=== PATIENT | female | born 1975 | race Caucasian/White ===

== ENCOUNTER 2016-09-29 14:54 | Outpatient (CLI) | payer BC, OTHER ==
--- NOTE | 2016-09-29 16:39 | RAD ---
LEFT THIRD FINGER: Date: 09-29-16 FINDINGS: Three views show no fracture or other bony abnormality. There are no soft tissue calcifications. T he PIP joint appears normal. IMPRESSION: No acute findings. POS: HOME
== END 2016-09-29 14:55 | disposition home or self-care (01) ==
LOC: BURRAD 14:54
PROVIDERS: ATTEND Family Medicine
DX: M79.645 Pain in left finger(s) (principal)

== ENCOUNTER 2016-10-06 03:49 | Emergency (ER) | payer BC, OTHER ==
[2016-10-06] MEDS ORDERED: Metoprolol Tartrate 5 MG/5 ML VIAL ONE (04:27)
[2016-10-06 04:28] LABS: #Basophils 0.1 thou/uL (0.0-0.2); #Eosinphils 0.3 thou/uL (0.0-0.7); #Lymphocytes 2.6 thou/uL (1.20-3.40); #Monocytes 0.4 thou/uL (0.11-0.59); #Neutrophils 3.6 thou/uL (1.40-6.50); %Basophils 1.2 % (0.0-1.0); %Eosinophils 4.9 % (0.0-10.0); %Monocytes 6.3 % (0.0-10.0); Hematocrit 41.4 % (36.0-47.0); Red Blood Cell (RBC) Count 4.46 mill/uL (4.20-5.40); White Blood Cell (WBC) Count 7.1 thou/uL (4.8-10.8)
[2016-10-06 04:33] LABS: Bilirubin Negative (Negative); Blood, Urine Trace (Negative); Glucose, Urine (Dipstick) Negative (Negative); Ketone, Urine Negative (Negative); Nitrite Negative (Negative); Protein, Urine (Dipstick) Negative (Neg-Trace); Urobilinogen 0.2 mg/dL (0.2-1.0)
[2016-10-06 04:36] LABS: ALT (SGPT) 15 U/L (0-55); AST (SGOT) 17 U/L (5-34); Alkaline Phosphatase 63 U/L (40-150); Anion Gap 15 mmol/L (10-20); BUN (Urea Nitrogen) 7 mg/dL (7.0-18.7); Bilirubin, Total 0.2 mg/dL (0.2-1.2); CK (CPK) 129 U/L (29-168); Calc. Creatinine Clearance 0 mL/min (70-130); Calcium 9.4 mg/dL (7.8-10.44); Carbon Dioxide 25 mmol/L (22-29); Chloride 107 mmol/L (98-107); Estimated GFR-MDRD 77; Globulin 2.8 g/dL (2.4-3.5); Magnesium 2.5 mg/dL (1.6-2.6); Protein, Total 7.3 g/dL (6.0-8.3)
[2016-10-06 04:38] LABS: Bacteria/HPF None Seen HPF (None Seen); RBC/HPF 0-3 HPF (0-3); Squamous Epithelial 0-3 HPF (0-3); WBC/HPF None Seen HPF (0-3)
[2016-10-06 04:41] LABS: Methadone Not Detected (NotDetected); Methamphetamine Not Detected (NotDetected)
[2016-10-06 08:01] LABS: Troponin I Less than 0.010 ng/mL (< 0.028)
--- NOTE | 2016-10-06 08:36 | ERRECORD ---
[facility] EMERGENCY RECORD HPI PALPITATIONS (04:17 MBRI) CHIEF COMPLAINT: Patient presents for evaluation of heart racing, Patient presents for evaluation of palpitations, Patient presents for evaluation of rapid heart rate. HISTORIAN: History provided by patient. LOCATION: Symptoms are generalized. QUALITY: Pain is dull in nature, Unable to describe the quality of the pain. SEVERITY: Maximum severity of symptoms moderate, Currently symptoms are mild. TIME COURSE: Sudden onset of symptoms, just prior to arrival, Symptoms are improving, are intermittent. CHADS2 SCORE: Patient has Systolic pressure greater than 160mmhg (1), Total 1. ASSOCIATED WITH: No associated anxiety, Associated with caffeine use, intermittent, No associated chest pain, Associated with chills, No associated decongestant use, Associated with diaphoresis, No associated diet pill use, No associated dizziness, No associated drug abuse, Not associated with exertion, Associated with headache, No associated nausea, No associated shortness of breath, No associated stress, No associated syncope, No associated vertigo, No associated vomiting, She had an intermittent pain in the left leg that travelled from her post knee proximally for a brief time period with the initial symptom onset. EXACERBATED BY: Patient's condition exacerbated by nothing. RELIEVED BY: Patient's condition relieved spontaneously. ROS (04:19 MBRI) CONSTITUTIONAL: Historian reports chills, denies fatigue, denies fever, denies weakness. EYES: Negative eye review of systems. ENT: Historian denies dysphagia, denies dysphasia, denies dysphonia, denies otalgia, denies rhinorrhea, denies sinus pain, denies sore throat, denies voice changes. Feeling of fullness in the throat with the onset of the symptoms. CARDIOVASCULAR: Historian denies chest pain, no radiation, Historian reports diaphoresis, denies dyspnea on exertion, denies edema, denies orthopnea, denies paroxysmal nocturnal dyspnea, denies syncope, reports palpitations. RESPIRATORY: Historian denies cough, denies shortness of breath, denies sputum, denies stridor, denies wheezing. GI: Negative gastrointestinal review of systems, Historian denies abdominal pain, denies nausea, denies vomiting. GENITOURINARY FEMALE: Negative genitourinary review of systems. MUSCULOSKELETAL: Negative musculoskeletal review of systems. SKIN: Negative skin review of systems. NEUROLOGIC: Historian denies dizziness, denies dysphasia, denies focal weakness, reports headache, denies mental status changes, denies paresthesias, denies sensory changes, denies speech changes, denies vertigo. &a-1R&a+25V*p+0X*f2001O*c202B*c15G*c2P*p-0X&a-25V&a+1R Name: Karli Sampson : 1975 F40 MedRec: [id number] AcctNum: [id number] Prepared: Sayda Oct 06, 2016 08:34 by Interface Page 1 of 5 pMD [facility] EMERGENCY RECORD ENDOCRINE: Negative endocrine review of systems. HEMO/LYMPHATIC: Normal hematologic/lymphatic system review. PSYCHIATRIC: Historian denies anxiety, denies depression, denies drug abuse, denies suicidal ideation. PAST MEDICAL HISTORY (04:13 BMAD) MEDICAL HISTORY: Flu vaccine not up to date, Tetanus not up to date, Pneumococcal vaccine not up to date, Raynauds disease. FEMALE SURGICAL HISTORY: bilateral knee repair, Surgical history of hysterectomy. PSYCHIATRIC HISTORY: No previous psychiatric history. SOCIAL HISTORY: Patient drinks socially, twice a month, Patient denies drug use, Patient currently uses tobacco, smokes cigarettes, daily, Patient has smoked for 5 years, Patient smokes 1/2 packs per day. KNOWN ALLERGIES acetaminophen (Unconfirmed): Reaction: "trouble breathing; hives" all opiates, (Unconfirmed): Reaction: Hives, Source: Patient codeine sulfate: Severity: Severe, - "trouble breathing" hydrocodone (Unconfirmed): Reaction: "trouble breathing, hives" hydrocodone bitartrate (Unconfirmed): Reaction: "trouble breathing; hives" meperidine HCl (Unconfirmed): Reaction: "trouble breathing, hives" morphine: Severity: Severe, Source: Patient, - "I coded." promethazine: Reaction: Hives, Severity: Moderate VICOdin: Severity: Severe, Source: Patient, - "trouble breathing." CURRENT MEDICATIONS (04:23 BMAD) aspirin: TABLET : Strength - 81 mg : ORAL Patient Dose: 1 tab(s) Oral once a day (in the morning). VITAL SIGNS VITAL SIGNS: BP: 173/98, Pulse: 68, Resp: 18, Temp: 97.8 (Oral), O2 sat: 97 on Room Air, Time: 10/06/2016 04:02. (04:02 BMAD) BP: 156/89, Pulse: 78, Resp: 22, Pain: 0, O2 sat: 98 on Room Air, Time: 10/06/2016 04:20. (04:20 BMAD) BP: 144/85, Pulse: 60, Resp: 18, Pain: 0, O2 sat: 98, Time: 10/06/2016 04:40. (04:40 BMAD) BP: 121/80, Pulse: 67, Resp: 14, O2 sat: 99 on Room Air, Time: 10/06/2016 05:04. (05:04 BMAD) Pulse: 56, Time: 10/06/2016 05:16. (05:16 BMAD) BP: 119/79, Pulse: 48, Resp: 14, Pain: 0, O2 sat: 98 on Room Air, Time: 10/06/2016 05:30. (05:30 BMAD) BP: 108/70, Pulse: 52, Resp: 15, Pain: 0, O2 sat: 96 on Room Air, Time: 10/06/2016 06:18. (06:18 BMAD) &a-1R&a+25V*p+0X*z5164N*c202B*c15G*c2P*p-0X&a-25V&a+1R Name: Karli Sampson : 1975 F40 MedRec: [id number] AcctNum: [id number] Prepared: Sayda Oct 06, 2016 08:34 by Interface Page 2 of 5 pMD [facility] EMERGENCY RECORD BP: 107/72, Pulse: 54, Resp: 16, O2 sat: 95 on Room Air, Time: 10/06/2016 06:30. (06:30 BMAD) Pulse: 57, Time: 10/06/2016 07:00. (07:00 BMAD) BP: 98/76, Pulse: 62, Resp: 14, Pain: 0, O2 sat: 95 on Room Air, Time: 10/06/2016 08:15. (08:15 [facility]) PHYSICAL EXAM (04:21 MBRI) CONSTITUTIONAL: Vital signs reviewed, Patient afebrile, Pulse normal, Blood pressure, hypertensive, Respiratory rate normal, Patient appears non toxic, Patient appears pain free, Patient alert and oriented to person, place and time. HEAD: Head exam included findings of head atraumatic, normocephalic. EYES: Eye exam included findings of eyelids normal to inspection, Pupils equally round and reactive to light, Extraocular muscles intact. ENT: ENT exam normal, Ear exam normal, Nose exam normal, Pharynx exam normal, Uvula exam normal, Mouth exam normal. NECK: Neck exam included findings of normal range of motion, Trachea midline, no cervical adenopathy, no tenderness, no abrasions, no contusions, no ecchymosis. RESPIRATORY CHEST: Respiratory exam included findings of no respiratory distress, Breath sounds clear, No wheezing, No rales, No rhonchi, Breath sounds not diminished, Chest exam included findings of chest movement symmetrical, no tenderness. CARDIOVASCULAR: Cardiovascular exam included findings of heart rate regular rate and rhythm, Heart sounds normal, normal S1, normal S2, no murmurs, Carotids normal, Abdominal aorta normal, Pedal pulses normal. ABDOMEN FEMALE: Abdominal exam included findings of abdomen nontender, Bowel sounds normal, no distension, no mass, no pulsatile masses, no peritoneal signs. BACK: Back exam included findings of normal inspection, no tenderness. UPPER EXTREMITY: Upper extremity exam included findings of inspection normal, Range of motion normal, Motor strength normal, Sensation intact, Radial pulse normal, no cyanosis, no clubbing, no edema. LOWER EXTREMITY: Lower extremity exam included findings of inspection normal, Range of motion normal, Motor strength normal, Sensation intact, Pedal pulse normal, Nish's negative, no cyanosis, no clubbing, no edema, no calf tenderness, no palpable cords. NEURO: [place] coma scale 15, Neuro exam findings include patient oriented to person, place and time, Speech normal, Gait normal, Cranial nerves intact, Deep tendon reflexes normal, no focal motor deficits, no focal sensory deficits, no cerebellar deficits, no nystagmus. SKIN: Skin exam included findings of skin warm, dry, and normal in color. &a-1R&a+25V*p+0X*a7638T*c202B*c15G*c2P*p-0X&a-25V&a+1R Name: Karli Sampson : 1975 F40 MedRec: [id number] AcctNum: [id number] Prepared: Sayda Oct 06, 2016 08:34 by Interface Page 3 of 5 pMD [facility] EMERGENCY RECORD EKG INTERPRETATION MONITOR STRIP: center specialists strip interpreted by Emergency Department Physician, Monitor strip shows sinus tachycardia, with unifocal premature ventricular complexes, with frequent premature ventricular complexes, in bigeminy, This happened spontaneously during obs of pt. She felt sensation of palpitations and rapid heart rate along with freq ectopy. (04:13 MBRI) 12 LEAD EKG INTERPRETATION: 12 lead EKG interpreted by Emergency Department Physician at time of study, 12 lead EKG shows normal sinus rhythm, Rate (beats per minute): 64, with premature atrial complexes, Conduction normal, ST segments normal, T waves normal, [place] normal, Clinical impression: Normal EKG. (04:10 MBRI) 12 lead EKG interpreted by Emergency Department Physician at time of study, 12 lead EKG shows normal sinus rhythm, Rate (beats per minute): 81, with unifocal premature ventricular complexes, with frequent premature ventricular complexes, in bigeminy, Early bigeminy gives way to decreasing rate in sinus pattern., Interpretation:, Conduction normal, ST segments normal, T waves normal, [place] normal, #2. (04:13 MBRI) RADIOLOGYINTERPRETATION (04:59 MBRI) CHEST: Chest films negative, no infiltrates, no pneumothorax, no cardiomegaly, no congestive heart failure, no effusion. SYSTEMS SOFTWARE ENGINEER: Preliminary review of x-rays by, ED Physician. MEDICATION ADMINISTRATION SUMMARY Drug Name: meTOPROLOL tartrate intravenous, Dose Ordered: 5 mg, Route: IV Push, Status: Given, Time: 04:40 10/06/2016, Detailed record available in Medication Service section. DOCTOR NOTES RE-EVALUATION: Routine re-evaluation, after observation, The patient's condition has improved. (07:59 MBRI) TEXT: Pt has been stable for several hours. No complaints and no further events from a tachycardia standpoint following her treatment. She is currently without symptoms. Initial testing was neg. We are awaiting second set of cardiac enzymes at this time. (07:59 MBRI) Pt evaluated at this time and appears stable. No findings to suggest sig illness or issue requiring hospitalization or further intervention at this time. Plan of care discussed with pt and questions answered. Pt was informed of reasons for follow-up and return and they stated understanding. Pt is stable for d/c home at this time. Will place her on some atenolol and give information about cardiology follow-up and PMD eval. (08:06 MBRI) PROBLEM LIST No recorded problems &a-1R&a+25V*p+0X*l4175O*c202B*c15G*c2P*p-0X&a-25V&a+1R Name: Karli Sampson : 1975 F40 MedRec: [id number] AcctNum: [id number] Prepared: Sayda Oct 06, 2016 08:34 by Interface Page 4 of 5 pMD [facility] EMERGENCY RECORD DIAGNOSIS (08:07 MBRI) FINAL: PRIMARY: PALPITATIONS, ADDITIONAL: PVCs. PRESCRIPTION (08:10 MBRI) atenolol: TABLET : 25 mg : ORAL : Quantity: 1 Unit: tab(s) Route: ORAL Schedule: once a day (in the morning) Dispense: 30 Unit: tab(s) May substitute. Refills: No Refills . NOTES: No refills. atenolol: TABLET : 50 mg : ORAL : Quantity: 1 Unit: tab(s) Route: ORAL Schedule: once a day Dispense: 30 May substitute. Refills: No Refills . NOTES: ^s=No refills No refills. DISPOSITION PATIENT: Disposition Type: Discharge, Disposition: *Discharge Home, Condition: Improved. (08:07 MBRI) Patient left the department. (08:32 JSID) Bailey: WILFRED=JESUS Ratliff, Hollis SPEAR=JESUS Morejon, Lisa MBRI=DO Manjarrez Matthew &a-1R&a+25V*p+0X*x0194C*c202B*c15G*c2P*p-0X&a-25V&a+1R Name: Karli Sampson : 1975 F40 MedRec: [id number] AcctNum: [id number] Prepared: Sayda Oct 06, 2016 08:34 by Interface Page 5 of 5 pMD MTDD
--- NOTE | 2016-10-06 08:42 | PICIS ---
[facility] EMERGENCY RECORD TRIAGE (WedOct 06, 2016 04:04 BMAD) TRIAGE NOTES: pt stating she was laying in bed when her heart began racing with nothing leading to the event. pt has no cardiac history. (WedOct 06, 2016 04:04 BMAD) PATIENT: NAME: Karli Sampson, AGE: 40, GENDER: female, : Wed1975, TIME OF GREET: WedOct 06, 2016 03:49, PREFERRED LANGUAGE: Sinhala, ETHNICITY: Not or , ECODE BILLING MAP: [facility], SSN: [id number], Zip Code: [address], KG WEIGHT: 54.43 (est.), , , PERSON ID: [id number], PAYMENT: SJJose Guadalupe Lara, PCP: DO ALEMAN JOHN SCOTT. (WedOct 06, 2016 04:04 BMAD) PHONE: . (04:06) COMPLAINT: Palpitations. (WedOct 06, 2016 04:04 BMAD) ADMISSION: URGENCY: 2 Emergent, ADMISSION SOURCE: Home, TRANSPORT: Walk-in, BED: ER -01. (WedOct 06, 2016 04:04 BMAD) IMMUNIZATIONS: Flu vaccine not up to date, Tetanus not up to date, Pneumococcal vaccine not up to date. (04:13 BMAD) SIRS SCORING: Heart Rate 55-109 (0), Temp range 96.8-101.1 (0), respiratory rate 12-24 (0), Mental Status altered: no (0), Infection or Suspected Infection: No. (04:13 BMAD) TRIAGE SCREENING: Patient denies suicidal ideation, Patient denies presence of domestic violence. (04:13 BMAD) PROVIDERS: TRIAGE NURSE: Hollis Ratliff RN. (WedOct 06, 2016 04:04 BMAD) VITAL SIGNS: BP 173/98, Pulse 68, Resp 18, Temp 97.8, (Oral), O2 Sat 97, on Room Air, Time 10/06/2016 04:02. (04:02 BMAD) PREVIOUS VISIT ALLERGIES: all opiates,, codeine sulfate, morphine, promethazine, VICOdin. (WedOct 06, 2016 04:04 BMAD) all opiates,, codeine sulfate, morphine, promethazine, VICOdin. (04:13 BMAD) KNOWN ALLERGIES acetaminophen (Unconfirmed): Reaction: "trouble breathing; hives" all opiates, (Unconfirmed): Reaction: Hives, Source: Patient codeine sulfate: Severity: Severe, - "trouble breathing" hydrocodone (Unconfirmed): Reaction: "trouble breathing, hives" hydrocodone bitartrate (Unconfirmed): Reaction: "trouble breathing; hives" meperidine HCl (Unconfirmed): Reaction: "trouble breathing, hives" morphine: Severity: Severe, Source: Patient, - "I coded." promethazine: Reaction: Hives, Severity: Moderate VICOdin: Severity: Severe, Source: Patient, - "trouble breathing." CURRENT MEDICATIONS (04:23 BMAD) aspirin: TABLET : Strength - 81 mg : ORAL Patient Dose: 1 tab(s) Oral once a day (in the morning). &a-1R&a+25V*p+0X*i0322G*c202B*c15G*c2P*p-0X&a-25V&a+1R Name: Karli Sampson : 1975 F40 MedRec: [id number] AcctNum: [id number] Prepared: WedOct 06, 2016 08:39 by Interface Page 1 of 14 pMD [facility] EMERGENCY RECORD VITAL SIGNS VITAL SIGNS: BP: 173/98, Pulse: 68, Resp: 18, Temp: 97.8 (Oral), O2 sat: 97 on Room Air, Time: 10/06/2016 04:02. (04:02 BMAD) BP: 156/89, Pulse: 78, Resp: 22, Pain: 0, O2 sat: 98 on Room Air, Time: 10/06/2016 04:20. (04:20 BMAD) BP: 144/85, Pulse: 60, Resp: 18, Pain: 0, O2 sat: 98, Time: 10/06/2016 04:40. (04:40 BMAD) BP: 121/80, Pulse: 67, Resp: 14, O2 sat: 99 on Room Air, Time: 10/06/2016 05:04. (05:04 BMAD) Pulse: 56, Time: 10/06/2016 05:16. (05:16 BMAD) BP: 119/79, Pulse: 48, Resp: 14, Pain: 0, O2 sat: 98 on Room Air, Time: 10/06/2016 05:30. (05:30 BMAD) BP: 108/70, Pulse: 52, Resp: 15, Pain: 0, O2 sat: 96 on Room Air, Time: 10/06/2016 06:18. (06:18 BMAD) BP: 107/72, Pulse: 54, Resp: 16, O2 sat: 95 on Room Air, Time: 10/06/2016 06:30. (06:30 BMAD) Pulse: 57, Time: 10/06/2016 07:00. (07:00 BMAD) BP: 98/76, Pulse: 62, Resp: 14, Pain: 0, O2 sat: 95 on Room Air, Time: 10/06/2016 08:15. (08:15 [facility]) NURSING ASSESSMENT: CARDIOVASCULAR (04:30 BMAD) CONSTITUTIONAL: Complex assessment performed, Patient arrives ambulatory, Gait steady, History obtained from patient, Patient appears, anxious, Patient cooperative, Patient alert, Oriented to person, place and time, Skin warm, Skin dry, Skin normal in color, Mucous membranes pink, Mucous membranes moist, Patient is well-groomed, Patient complains of Palpitations, pt stating she was laying in bed when her heart began racing with nothing leading to the event. pt stating she also has a headache associated with the heart racing feeling. pt also complaining of the feeling of incontinence. pt is worried "that she has a blood clot.". PAIN: Patient rates pain as 0 out of 10. CARDIOVASCULAR: Cardiovascular assessment findings include heart rate normal, Heart rhythm normal sinus, Heart sounds normal, S1, S2, Bilateral blood pressures equal, Left radial pulse +3(easily palpated, considered normal), Right radial pulse +3(easily palpated, considered normal), No history of pulmonary embolism, No history of DVT or leg swelling. RESPIRATORY/CHEST: Breath sounds clear, Respiratory assessment findings include respiratory effort easy, Respirations regular, Conversing normally, Neck and chest exam findings include trachea midline, Chest expansion equal, Chest movement symmetrical. SAFETY: Side rails up, Cart/Stretcher in lowest position, Family at bedside, Call light within reach, Hospital ID band on. NURSING ASSESSMENT: FALL RISK (05:17 BMAD) FALL RISK: Fall risk assessment findings include: no history of falls (0), No bed rest greater than 2 days (0), No use of level of consciousness altering agents with mentation or cognitive changes &a-1R&a+25V*p+0X*t6024P*c202B*c15G*c2P*p-0X&a-25V&a+1R Name: Karli Sampson : 1975 F40 MedRec: [id number] AcctNum: [id number] Prepared: Sayda Oct 06, 2016 08:39 by Interface Page 2 of 14 D [facility] EMERGENCY RECORD (0), No change in blood pressure (0), No sensory deficits (0), No impaired mobility (0), No neurologic diagnosis (0), No elimination problems (0), No confusion (0), Total score 0, No risk for fall. NURSING ASSESSMENT: SKIN (05:20 BMAD) SKIN: Skin assessment findings include skin warm, Skin dry, Skin normal in color, Inspection findings include: No pressure ulcer to the shoulder, Inspection findings include no pressure ulcer to the elbow, Inspection findings include no pressure ulcers to the hip, Inspection findings include no pressure ulcer to the sacrum, Inspection findings include no pressure ulcer to the heel, Inspection findings include no pressure ulcer, Inspection findings include no pressure ulcer. NURSING PROCEDURE: BEDSIDE SIRS TESTING (05:16 BMAD) SCORES: Heart Rate 55-109 (0), Temp range 96.8-101.1 (0), respiratory rate 12-24 (0), Latest WBC 3-14.9 (0), Mental Status altered: no (0), Infection or Suspected Infection: No. NURSING PROCEDURE: HYDROELECTRIC MECHANIC (04:14 BMAD) HYDROELECTRIC MECHANIC: Patient placed on surveillance system monitor, Patient placed on non-invasive blood pressure monitor, with disposable blood pressure cuff applied, Patient placed on continuous pulse oximetry, Adult/pediatric oxisensor applied, Oxygen saturation 100%. NURSING PROCEDURE: DISCHARGE NOTE (08:16 [facility]) DISCHARGE: Patient discharged to home, ambulating without assistance, driving self, accompanied by other family member, Summary of Care printed/ provided, Patient requested and was provided an electronic copy of Discharge Instructions, Transition record given to patient, Discharge instructions given to patient, Simple or moderate discharge teaching performed, Prescriptions given and instructions on side effects given, Medication reconciliation form given, Above person(s) verbalized understanding of discharge instructions and follow-up care, Patient treated and evaluated by physician. NURSING PROCEDURE: EKG CHART PATIENT IDENTIFIER: Patient actively involved in identification process, Patient's identity verified by patient stating name, Patient's identity verified by patient stating date, Patient's identity verified by hospital ID bracelet. (04:04 BMAD) Patient actively involved in identification process, Patient's identity verified by patient stating name, Patient's identity verified by patient stating date, Patient's identity verified by hospital ID bracelet. (04:09 BMAD) EKG: EKG indicated for complaint of palpitations, 12 lead EKG performed on the left chest, done by Hollis LEE, first EKG, Notes: Initial EKG completed at 0353 with problems storing on SD card on EKG machine therefore EKG was repeated to get better quality. &a-1R&a+25V*p+0X*v2467B*c202B*c15G*c2P*p-0X&a-25V&a+1R Name: Karli Sampson : 1975 F40 MedRec: [id number] AcctNum: [id number] Prepared: Sayda Oct 06, 2016 08:39 by Interface Page 3 of 14 pMD [facility] EMERGENCY RECORD (04:04 BMAD) EKG indicated for complaint of palpitations, 12 lead EKG performed on the left chest, done by Hollis LEE, second EKG, Notes: Pt EKG repeated per Dr. Manjarrez verbal order. Pt stating at this time, "I do not know what is wrong I feel like I am going too pee myself!. It's happening again!" Ptt behavior very anxious at this time. Dr. Manjarrez verbalizing to keep pt hooked up to EKG machine and repeart upon pt experiencing tachycardia. (04:09 BMAD) FOLLOW-UP: After procedure, EKG for interpretation given to Dr. Manjarrez. (04:04 BMAD) After procedure, EKG for interpretation given to Dr. Manjarrez. (04:09 BMAD) NURSING PROCEDURE: IV PATIENT IDENITIFIER: Patient actively involved in identification process, Patient's identity verified by patient stating name, Patient's identity verified by patient stating date, Patient's identity verified by hospital ID bracelet, Patient's identity verified by family member. (04:14 BMAD) IV SITE 1: IV therapy indicated for hydration, IV therapy indicated for medication administration, IV established, to the right antecubital, using a 20 gauge catheter, in one attempt, IV site prepped with CHLORAPREP, Saline lock established, Flushed with normal saline (mls): 10, Labs drawn at time of placement, labeled in the presence of the patient and sent to lab, Notes: LINE ESTABLISHED BY PENELOPE LEE. (04:14 BMAD) FOLLOW-UP SITE 1: IV discontinued, due to patient being discharged, catheter intact, Notes: Bleeding easily controlled. Site covered with 2X2 gauze and secured with transpore tape. (08:15 JSMI) NURSING PROCEDURE: NURSE NOTES NURSES NOTES: Patient is improving, Patient in no apparent distress, Patient states decreased pain, Assistance offered to patient, Pillow given to patient, Warm blanket given to patient, Food or beverage offered to family members. (05:15 BMAD) Notes: DR. MANJARREZ AWARE OF PT HEART RATE IN 40S POST METOPROLOL ADMINISTRATION. (05:42 BMAD) Notes: report from JESUS Shafer. Pt in NAD, RR even and unlabored. (07:08 LGIB) ORDER DETAILS Order Name: HYDROELECTRIC MECHANIC ED, Status: Done, Time: 04:13 10/06/2016, User: BMAD, - Ordered for: DO Manjarrez Matthew, - Entered by: DO Manjarrez Matthew - Tue Oct 06, 2016 04:10, - Quantity: 1, Order Name: Cardiac Profile w/CKMB & Troponin - I, Status: Active, Time: 07:16 10/06/2016, User: LGIB, - Ordered for: DO Manjarrez Matthew, &a-1R&a+25V*p+0X*f5065N*c202B*c15G*c2P*p-0X&a-25V&a+1R Name: Karli Sampson : 1975 F40 MedRec: [id number] AcctNum: [id number] Prepared: WedOct 06, 2016 08:39 by Interface Page 4 of 14 pMD [facility] EMERGENCY RECORD - Entered by: JESUS Yeung Lauren - Tue Oct 06, 2016 07:16, - Quantity: 1, Order Name: Cardiac Profile w/CKMB & Troponin - I, Status: Active, Time: 04:10 10/06/2016, User: MBRI, - Ordered for: DO Manjarrez Matthew, - Entered by: DO Manjarrez Matthew - Tue Oct 06, 2016 04:10, - Quantity: 1, Order Name: CBC with Differential, Status: Active, Time: 04:10 10/06/2016, User: MBRI, - Ordered for: DO Manjarrez Matthew, - Entered by: DO Manjarrez Matthew - Tue Oct 06, 2016 04:10, - Quantity: 1, Order Name: CK (CPK), Status: Active, Time: 04:10 10/06/2016, User: MBRI, - Ordered for: DO Manjarrez Matthew, - Entered by: DO Manjarrez Matthew - Tue Oct 06, 2016 04:10, - Quantity: 1, Order Name: Comprehensive Metabolic Panel, Status: Active, Time: 04:10 10/06/2016, User: MBRI, - Ordered for: DO Manjarrez Matthew, - Entered by: DO Manjarrez Matthew - Tue Oct 06, 2016 04:10, - Quantity: 1, Order Name: D-Dimer (Quantitative), Status: Active, Time: 04:10 10/06/2016, User: MBRI, - Ordered for: DO Manjarrez Matthew, - Entered by: DO Manjarrez Matthew - Tue Oct 06, 2016 04:10, - Quantity: 1, Order Name: Drug Screen, Urine, Status: Active, Time: 04:10 10/06/2016, User: MBRI, - Ordered for: DO Manjarrez Matthew, - Entered by: DO Manjarrez Matthew - Tue Oct 06, 2016 04:10, - Quantity: 1, Order Name: EKG 12 Lead in Emergency Room, Status: Active, Time: 04:10 10/06/2016, User: CRISPIN, - Ordered for: DO Manjarrez Matthew, - Entered by: DO Manjarrez Matthew - Sayda Oct 06, 2016 04:10, - Quantity: 1, Order Name: EKG 12 Lead in Emergency Room, Status: Active, Time: 04:19 10/06/2016, User: WILFRED, - Ordered for: DO Manjarrez Matthew, - Entered by: EJSUS Ratliff Blake - Tue Oct 06, 2016 04:19, - Quantity: 1, Order Name: ERRT Pulse Oximeter ER, Status: Active, Time: 04:10 10/06/2016, User: CRISPIN, - Ordered for: DO Manjarrez Matthew, - Entered by: DO Manjarrez Matthew - Tue Oct 06, 2016 04:10, - Quantity: 1, Order Name: Magnesium, Status: Active, Time: 04:10 10/06/2016, User: CRISPIN, - Ordered for: DO Manjarrez Matthew, &a-1R&a+25V*p+0X*e9350Y*c202B*c15G*c2P*p-0X&a-25V&a+1R Name: Karli Sampson : 1975 F40 MedRec: [id number] AcctNum: [id number] Prepared: WedOct 06, 2016 08:39 by Interface Page 5 of 14 D [facility] EMERGENCY RECORD - Entered by: DO Manjarrez Matthew - Tue Oct 06, 2016 04:10, - Quantity: 1, Order Name: SALINE LOCK, Status: Done, Time: 04:13 10/06/2016, User: WILFRED, - Ordered for: DO Manjarrez Matthew, - Entered by: DO Manjarrez Matthew - Tue Oct 06, 2016 04:10, - Quantity: 1, Order Name: Thyroid Stimulating Hormone, Status: Active, Time: 04:10 10/06/2016, User: CRISPIN, - Ordered for: DO Manjarrez Matthew, - Entered by: DO Manjarrez Matthew - Tue Oct 06, 2016 04:10, - Quantity: 1, Order Name: Urinalysis w/ Rflx Microscopic, Status: Active, Time: 04:10 10/06/2016, User: CRISPIN, - Ordered for: DO Manjarrez Matthew, - Entered by: DO Manjarrez Matthew - Tue Oct 06, 2016 04:10, - Quantity: 1, Order Name: XR Chest 1 View Portable, Status: Active, Time: 04:10 10/06/2016, User: CRISPIN, - Ordered for: DO Manjarrez Matthew, - Entered by: DO Manjarrez Matthew - Tue Oct 06, 2016 04:10, - Quantity: 1. MEDICATION ADMINISTRATION SUMMARY Drug Name: meTOPROLOL tartrate intravenous, Dose Ordered: 5 mg, Route: IV Push, Status: Given, Time: 04:40 10/06/2016, Detailed record available in Medication Service section. MEDICATION SERVICE (04:40 [facility]) meTOPROLOL tartrate intravenous: Order: meTOPROLOL tartrate intravenous (metoprolol tartrate) - Dose: 5 mg : IV Push Ordered by: Valdemar Manjarrez DO Entered by: Valdemar Manjarrez DO bhavani Oct 06, 2016 04:27 , Acknowledged by: Hollis Ratliff RN Oct 06, 2016 04:30 Documented as given by: Hollis Ratliff RN Oct 06, 2016 04:40 Patient, Medication, Dose, Route and Time verified prior to administration. Amount given: 5 mg, IV SITE #1 IVP, initial medication, Slowly, Catheter placement confirmed via flush prior to administration, IV site without signs or symptoms of infiltration during medication administration, No swelling during administration, No drainage during administration, IV flushed after administration, Correct patient, time, route, dose and medication confirmed prior to administration, Patient advised of actions and side-effects prior to administration, Allergies confirmed and medications reviewed prior to administration, Patient in position of comfort, Side rails up, Cart in lowest position, Family at bedside. HPI PALPITATIONS (04:17 [facility]) &a-1R&a+25V*p+0X*u3046C*c202B*c15G*c2P*p-0X&a-25V&a+1R Name: Karli Sampson : 1975 F40 MedRec: [id number] AcctNum: [id number] Prepared: Antoniobhavani Oct 06, 2016 08:39 by Interface Page 6 of 14 pMD [facility] EMERGENCY RECORD CHIEF COMPLAINT: Patient presents for evaluation of heart racing, Patient presents for evaluation of palpitations, Patient presents for evaluation of rapid heart rate. HISTORIAN: History provided by patient. LOCATION: Symptoms are generalized. QUALITY: Pain is dull in nature, Unable to describe the quality of the pain. SEVERITY: Maximum severity of symptoms moderate, Currently symptoms are mild. TIME COURSE: Sudden onset of symptoms, just prior to arrival, Symptoms are improving, are intermittent. CHADS2 SCORE: Patient has Systolic pressure greater than 160mmhg (1), Total 1. ASSOCIATED WITH: No associated anxiety, Associated with caffeine use, intermittent, No associated chest pain, Associated with chills, No associated decongestant use, Associated with diaphoresis, No associated diet pill use, No associated dizziness, No associated drug abuse, Not associated with exertion, Associated with headache, No associated nausea, No associated shortness of breath, No associated stress, No associated syncope, No associated vertigo, No associated vomiting, She had an intermittent pain in the left leg that travelled from her post knee proximally for a brief time period with the initial symptom onset. EXACERBATED BY: Patient's condition exacerbated by nothing. RELIEVED BY: Patient's condition relieved spontaneously. ROS (04:19 MBRI) CONSTITUTIONAL: Historian reports chills, denies fatigue, denies fever, denies weakness. EYES: Negative eye review of systems. ENT: Historian denies dysphagia, denies dysphasia, denies dysphonia, denies otalgia, denies rhinorrhea, denies sinus pain, denies sore throat, denies voice changes. Feeling of fullness in the throat with the onset of the symptoms. CARDIOVASCULAR: Historian denies chest pain, no radiation, Historian reports diaphoresis, denies dyspnea on exertion, denies edema, denies orthopnea, denies paroxysmal nocturnal dyspnea, denies syncope, reports palpitations. RESPIRATORY: Historian denies cough, denies shortness of breath, denies sputum, denies stridor, denies wheezing. GI: Negative gastrointestinal review of systems, Historian denies abdominal pain, denies nausea, denies vomiting. GENITOURINARY FEMALE: Negative genitourinary review of systems. MUSCULOSKELETAL: Negative musculoskeletal review of systems. SKIN: Negative skin review of systems. NEUROLOGIC: Historian denies dizziness, denies dysphasia, denies focal weakness, reports headache, denies mental status changes, denies paresthesias, denies sensory changes, denies speech changes, denies vertigo. ENDOCRINE: Negative endocrine review of systems. &a-1R&a+25V*p+0X*g0667B*c202B*c15G*c2P*p-0X&a-25V&a+1R Name: Karli Sampson : 1975 F40 MedRec: [id number] AcctNum: [id number] Prepared: Sayda Oct 06, 2016 08:39 by Interface Page 7 of 14 pMD [facility] EMERGENCY RECORD HEMO/LYMPHATIC: Normal hematologic/lymphatic system review. PSYCHIATRIC: Historian denies anxiety, denies depression, denies drug abuse, denies suicidal ideation. PAST MEDICAL HISTORY (04:13 BMAD) MEDICAL HISTORY: Flu vaccine not up to date, Tetanus not up to date, Pneumococcal vaccine not up to date, Raynauds disease. FEMALE SURGICAL HISTORY: bilateral knee repair, Surgical history of hysterectomy. PSYCHIATRIC HISTORY: No previous psychiatric history. SOCIAL HISTORY: Patient drinks socially, twice a month, Patient denies drug use, Patient currently uses tobacco, smokes cigarettes, daily, Patient has smoked for 5 years, Patient smokes 1/2 packs per day. PHYSICAL EXAM (04:21 MBRI) CONSTITUTIONAL: Vital signs reviewed, Patient afebrile, Pulse normal, Blood pressure, hypertensive, Respiratory rate normal, Patient appears non toxic, Patient appears pain free, Patient alert and oriented to person, place and time. HEAD: Head exam included findings of head atraumatic, normocephalic. EYES: Eye exam included findings of eyelids normal to inspection, Pupils equally round and reactive to light, Extraocular muscles intact. ENT: ENT exam normal, Ear exam normal, Nose exam normal, Pharynx exam normal, Uvula exam normal, Mouth exam normal. NECK: Neck exam included findings of normal range of motion, Trachea midline, no cervical adenopathy, no tenderness, no abrasions, no contusions, no ecchymosis. RESPIRATORY CHEST: Respiratory exam included findings of no respiratory distress, Breath sounds clear, No wheezing, No rales, No rhonchi, Breath sounds not diminished, Chest exam included findings of chest movement symmetrical, no tenderness. CARDIOVASCULAR: Cardiovascular exam included findings of heart rate regular rate and rhythm, Heart sounds normal, normal S1, normal S2, no murmurs, Carotids normal, Abdominal aorta normal, Pedal pulses normal. ABDOMEN FEMALE: Abdominal exam included findings of abdomen nontender, Bowel sounds normal, no distension, no mass, no pulsatile masses, no peritoneal signs. BACK: Back exam included findings of normal inspection, no tenderness. UPPER EXTREMITY: Upper extremity exam included findings of inspection normal, Range of motion normal, Motor strength normal, Sensation intact, Radial pulse normal, no cyanosis, no clubbing, no edema. LOWER EXTREMITY: Lower extremity exam included findings of inspection normal, Range of motion normal, Motor strength normal, &a-1R&a+25V*p+0X*e0026D*c202B*c15G*c2P*p-0X&a-25V&a+1R Name: Karli Sampson : 1975 F40 MedRec: [id number] AcctNum: [id number] Prepared: WedOct 06, 2016 08:39 by Interface Page 8 of 14 pMD [facility] EMERGENCY RECORD Sensation intact, Pedal pulse normal, Nish's negative, no cyanosis, no clubbing, no edema, no calf tenderness, no palpable cords. NEURO: [place] coma scale 15, Neuro exam findings include patient oriented to person, place and time, Speech normal, Gait normal, Cranial nerves intact, Deep tendon reflexes normal, no focal motor deficits, no focal sensory deficits, no cerebellar deficits, no nystagmus. SKIN: Skin exam included findings of skin warm, dry, and normal in color. LAB INTERPRETATION (04:59 MBRI) INTERPRETATION: I reviewed the lab results. EVENTS TRANSFER: Triage to Emergency Emergency Room -01. (WedOct 06, 2016 04:04 BMAD) Removed from Emergency Emergency Room -01. (08:32 JSMI) RADIOLOGYINTERPRETATION (04:59 MBRI) CHEST: Chest films negative, no infiltrates, no pneumothorax, no cardiomegaly, no congestive heart failure, no effusion. INJURY PREVENTION COORDINATOR: Preliminary review of x-rays by, ED Physician. EKG INTERPRETATION MONITOR STRIP: surveillance system monitor strip interpreted by Emergency Department Physician, Monitor strip shows sinus tachycardia, with unifocal premature ventricular complexes, with frequent premature ventricular complexes, in bigeminy, This happened spontaneously during obs of pt. She felt sensation of palpitations and rapid heart rate along with freq ectopy. (04:13 MBRI) 12 LEAD EKG INTERPRETATION: 12 lead EKG interpreted by Emergency Department Physician at time of study, 12 lead EKG shows normal sinus rhythm, Rate (beats per minute): 64, with premature atrial complexes, Conduction normal, ST segments normal, T waves normal, Lenora normal, Clinical impression: Normal EKG. (04:10 MBRI) 12 lead EKG interpreted by Emergency Department Physician at time of study, 12 lead EKG shows normal sinus rhythm, Rate (beats per minute): 81, with unifocal premature ventricular complexes, with frequent premature ventricular complexes, in bigeminy, Early bigeminy gives way to decreasing rate in sinus pattern., Interpretation:, Conduction normal, ST segments normal, T waves normal, Lenora normal, #2. (04:13 MBRI) O2SAT INTERPRETATION (04:06 MBRI) O2SAT: Oxygen saturation interpretation: Normal. DOCTOR NOTES RE-EVALUATION: Routine re-evaluation, after observation, The patient's condition has improved. (07:59 MBRI) &a-1R&a+25V*p+0X*o2761J*c202B*c15G*c2P*p-0X&a-25V&a+1R Name: Karli Sampson : 1975 F40 MedRec: [id number] AcctNum: [id number] Prepared: Sayda Oct 06, 2016 08:39 by Interface Page 9 of 14 pMD [facility] EMERGENCY RECORD TEXT: Pt has been stable for several hours. No complaints and no further events from a tachycardia standpoint following her treatment. She is currently without symptoms. Initial testing was neg. We are awaiting second set of cardiac enzymes at this time. (07:59 MBRI) Pt evaluated at this time and appears stable. No findings to suggest sig illness or issue requiring hospitalization or further intervention at this time. Plan of care discussed with pt and questions answered. Pt was informed of reasons for follow-up and return and they stated understanding. Pt is stable for d/c home at this time. Will place her on some atenolol and give information about cardiology follow-up and PMD eval. (08:06 [facility]) PROBLEM LIST No recorded problems DIAGNOSIS (08:07 [facility]) FINAL: PRIMARY: PALPITATIONS, ADDITIONAL: PVCs. DISPOSITION PATIENT: Disposition Type: Discharge, Disposition: *Discharge Home, Condition: Improved. (08:07 [facility]) Patient left the department. (08:32 [facility]) INSTRUCTION (08:15 [facility]) DISCHARGE: PALPITATIONS. FOLLOWUP: DO LOVE, CORRY GUERRERO, Family Practice, [address] [facility] [address], , MD Spicer G. Jean, Cardiology, [address] [address], , Follow up with Specialist as soon as possible. SPECIAL: Please return for any further issues or concerns, we would be happy to see you. We hope you feel better soon. Follow-up with your PCP in the next week and with cardiology as soon as possible. Return to work in 1 day. PRESCRIPTION (08:10 [facility]) atenolol: TABLET : 25 mg : ORAL : Quantity: 1 Unit: tab(s) Route: ORAL Schedule: once a day (in the morning) Dispense: 30 Unit: tab(s) May substitute. Refills: No Refills . NOTES: No refills. atenolol: TABLET : 50 mg : ORAL : Quantity: 1 Unit: tab(s) Route: ORAL Schedule: once a day Dispense: 30 May substitute. Refills: No Refills . NOTES: ^s=No refills No refills. &a-1R&a+25V*p+0X*c9012H*c202B*c15G*c2P*p-0X&a-25V&a+1R Name: Karli Sampson : 1975 F40 MedRec: [id number] AcctNum: [id number] Prepared: WedOct 06, 2016 08:39 by Interface Page 10 of 14 pMD [facility] EMERGENCY RECORD IMAGING *SUPPLY CHARGE SHEET: Image captured from scanner. (08:33 JS[facility]) *DISCHARGE INSTRUCTIONS RECEIPT: Image captured from scanner. (08:33 JS[facility]) Page 2 added. Image captured from scanner. (08:34 [facility]) *EKG: Image captured from scanner. (08:35 [facility]) Page 2 added. Image captured from scanner. (08:35 [facility]) MONITOR STRIPS: Image captured from scanner. (08:35 JSMI) Page 2 added. Image captured from scanner. (08:36 [facility]) RESULTS LABORATORY: Urine Microscopic Collection DT: WedOct 06, 2016 04:25, RBC/HPF 0-3 HPF, Range (0-3), WBC/HPF None Seen HPF, Range (0-3), Squamous Epithelial 0-3 HPF, Range (0-3), Bacteria/HPF None Seen HPF, Range (None Seen). (04:42 [facility]) Urinalysis w/ Rflx Microscopic Collection DT: WedOct 06, 2016 04:25, Color Yellow , Range (Yellow), Clarity Slightly Cloudy , Range (Clear), Specific [place], Urine 1.010 , Range (1.005-1.030), pH, Urine 7.0 , Range (5.0-9.0), Leukocyte Negative , Range (Negative), Nitrite Negative , Range (Negative), Protein, Urine (Dipstick) Negative mg/dL, Range (Neg-Trace), Glucose, Urine (Dipstick) Negative mg/dL, Range (Negative), Ketone, Urine Negative mg/dL, Range (Negative), Urobilinogen 0.2 mg/dL, Range (0.2-1.0), Bilirubin Negative , Range (Negative), *Blood, Urine Trace - H , Range (Negative). (04:42 [facility]) Cardiac Profile w/CKMB & TropI Collection DT: WedOct 06, 2016 04:25, CKMB 1.0 ng/mL, Range (0-6.6), Troponin I 0.010 ng/mL, Range (< 0.028), Reference Range , 0.00 - 0.028 ng/mL Negative 0.029 - 0.29 ng/mL , Indeterminate Greater or Equal to 0.3 ng/mL Strongly suggests [place] , . (04:42 [facility]) Magnesium Collection DT: WedOct 06, 2016 04:25, Magnesium 2.5 mg/dL, Range (1.6-2.6), NOTE: Higher values can be expected in females during menses . (04:42 [facility]) CK (CPK) Collection DT: WedOct 06, 2016 04:25, CK (CPK) 129 U/L, Range (29-168). (04:42 [facility]) Comprehensive Metabolic Panel Collection DT: WedOct 06, 2016 04:25, Sodium 143 mmol/L, Range (136-145), Potassium 3.5 mmol/L, Range (3.5-5.1), Chloride 107 mmol/L, Range (98-107), Carbon Dioxide 25 mmol/L, Range (22-29), Anion Gap 15 mmol/L, Range (10-20), &a-1R&a+25V*p+0X*s4659T*c202B*c15G*c2P*p-0X&a-25V&a+1R Name: Karli Sampson : 1975 F40 MedRec: [id number] AcctNum: [id number] Prepared: WedOct 06, 2016 08:39 by Interface Page 11 of 14 pMD [facility] EMERGENCY RECORD BUN (Urea Nitrogen) 7 mg/dL, Range (7.0-18.7), Creatinine 0.82 mg/dL, Range (0.6-1.1), Estimated GFR-MDRD 77 , Reference Range for Estimated GFR: Greater than 90, mL/min/1.73 m2 NOTE: The MDRD equation has not been validated for use, with the elderly (over 70 years of age), women, patients with, serious comorbid condition or persons with extremes of body size, muscle, mass, or nutritional status. , Glucose 99 mg/dL, Range (70-105), Calcium 9.4 mg/dL, Range (7.8-10.44), Bilirubin, Total 0.2 mg/dL, Range (0.2-1.2), Protein, Total 7.3 g/dL, Range (6.0-8.3), NOTE: Plasma values are generally 0.3 to 0.5 g/dL higher than serum values, due to the presence of fibrinogen. , Albumin 4.5 g/dL, Range (3.5-5.0), Globulin 2.8 g/dL, Range (2.4-3.5), Alb/Glob Ratio 1.6 g/dL, Range (1.2-2.2), Alkaline Phosphatase 63 U/L, Range (40-150), AST (SGOT) 17 U/L, Range (5-34), ALT (SGPT) 15 U/L, Range (0-55). (04:42 [facility]) D-Dimer (Quantitative) Collection DT: WedOct 06, 2016 04:25, *D-Dimer Test Less than 0.27 - L *mcg/mL, Range (0.27-0.43), * Reference Range Units: mcg/mL of fibrinogen equivalent, units(FEU) Based upon a retrospective study of [facility] patients in January 2006, a result of Less than 0.44 mcg/mL FEU is, predictive of the absence of a DVT or PE. . (04:42 [facility]) CBC with Differential Collection DT: WedOct 06, 2016 04:25, White Blood Cell (WBC) Count 7.1 thou/uL, Range (4.8-10.8), Red Blood Cell (RBC) Count 4.46 mill/uL, Range (4.20-5.40), Hemoglobin 14.0 g/dL, Range (12.0-16.0), Hematocrit 41.4 %, Range (36.0-47.0), Mean Corpuscular Volume 92.8 fl, Range (81.0-99.0), *Mean Corpuscular Hemoglobin 31.4 - H pg, Range (27.0-31.0), Mean Corpuscular HGB CONC 33.9 g/dL, Range (32.0-36.0), *RBC Distribution Width 10.8 - L %, Range (11.5-14.5), Platelet Count 262 thou/uL, Range (130-400), *Mean Platelet Volume 7.0 - L fL, Range (7.4-10.4), %Neutrophils 51.2 %, Range (42.0-75.0), %Lymphocytes 36.4 %, Range (21.0-51.0), %Monocytes 6.3 %, Range (0.0-10.0), %Eosinophils 4.9 %, Range (0.0-10.0), *%Basophils 1.2 - H %, Range (0.0-1.0), #Neutrophils 3.6 thou/uL, Range (1.40-6.50), #Lymphocytes 2.6 thou/uL, Range (1.20-3.40), #Monocytes 0.4 thou/uL, Range (0.11-0.59), &a-1R&a+25V*p+0X*x2200Y*c202B*c15G*c2P*p-0X&a-25V&a+1R Name: Karli Sampson : 1975 F40 MedRec: [id number] AcctNum: [id number] Prepared: WedOct 06, 2016 08:39 by Interface Page 12 of 14 D [facility] EMERGENCY RECORD #Eosinphils 0.3 thou/uL, Range (0.0-0.7), #Basophils 0.1 thou/uL, Range (0.0-0.2). (04:42 [facility]) Drug Screen, Urine Collection DT: WedOct 06, 2016 04:25, THC/Cannabinoid Screen Not Detected , Range (NotDetected), Phencyclidine (PCP) Not Detected , Range (NotDetected), Cocaine Metabolite Screen Not Detected , Range (NotDetected), Methamphetamine Not Detected , Range (NotDetected), Opiate Screen Not Detected , Range (NotDetected), Amphetamine Not Detected , Range (NotDetected), Benzodiazepine Screen Not Detected , Range (NotDetected), Tricyclic Screen Not Detected , Range (NotDetected), Methadone Not Detected , Range (NotDetected), Barbiturates Screen Not Detected , Range (NotDetected), Oxycodone Screen Not Detected , Range (NotDetected), Propoxyphene Screen Not Detected , Range (NotDetected), Drug Screen Cutoff , Range (), The [employer] Profile-V Panel for Qualitative Drugs of Abuse assays are for, presumptive screening testing only. The drug class and detection limits, are as follows: Drug Class Detection Limit Amphetamine , 500 ng/mL* Barbiturates 200 ng/mL , Benzodiazepines 150 ng/mL* Cocaine 150 ng/mL*, Methamphetamine 500 ng/mL* Methadone 200, ng/mL* Opiates 100 ng/mL* Oxycodone , 100 ng/mL PCP 25 ng/mL Propoxyphene , 300 ng/mL Tricyclic Antidepressants 300 ng/mL Cannabinoids (THC) , 50 ng/mL Tests which yield a presumptive positive result must be , tested using a more specific alternate chemical method in order to obtain, a confirmed analytical result. Additional confirmation and identification, may be ordered on a routine basis, if desired. Presumptive positive urines, are held for two weeks. . (04:55 [facility]) Urine Microscopic Collection DT: WedOct 06, 2016 04:25, RBC/HPF 0-3 HPF, Range (0-3), WBC/HPF None Seen HPF, Range (0-3), Squamous Epithelial 0-3 HPF, Range (0-3), Bacteria/HPF None Seen HPF, Range (None Seen). (04:55 [facility]) Urinalysis w/ Rflx Microscopic Collection DT: WedOct 06, 2016 04:25, Color Yellow , Range (Yellow), Clarity Slightly Cloudy , Range (Clear), Specific [place], Urine 1.010 , Range (1.005-1.030), &a-1R&a+25V*p+0X*f8513S*c202B*c15G*c2P*p-0X&a-25V&a+1R Name: Karli Sampson : 1975 F40 MedRec: [id number] AcctNum: [id number] Prepared: WedOct 06, 2016 08:39 by Interface Page 13 of 14 pMD [facility] EMERGENCY RECORD pH, Urine 7.0 , Range (5.0-9.0), Leukocyte Negative , Range (Negative), Nitrite Negative , Range (Negative), Protein, Urine (Dipstick) Negative mg/dL, Range (Neg-Trace), Glucose, Urine (Dipstick) Negative mg/dL, Range (Negative), Ketone, Urine Negative mg/dL, Range (Negative), Urobilinogen 0.2 mg/dL, Range (0.2-1.0), Bilirubin Negative , Range (Negative), *Blood, Urine Trace - H , Range (Negative). (04:55 [facility]) Thyroid Stimulating Hormone Collection DT: WedOct 06, 2016 04:25, Thyroid Stimulating Hormone 1.9496 uIU/mL, Range (0.35-4.94). (07:50 [facility]) Cardiac Profile w/CKMB & TropI Collection DT: WedOct 06, 2016 07:41, See comment below , Comment repeat , CKMB 0.8 ng/mL, Range (0-6.6), Troponin I Less than 0.010 ng/mL, Range (< 0.028), Reference Range , 0.00 - 0.028 ng/mL Negative 0.029 - 0.29 ng/mL , Indeterminate Greater or Equal to 0.3 ng/mL Strongly suggests [place] , . (08:06 [facility]) Bailey: BMAD=JESUS Ratliff, Hollis JSMI=JESUS Morejon, Lisa LGIB=JESUS Yeung, Evelina MBRI=DO Manjarrez Matthew &a-1R&a+25V*p+0X*c7470G*c202B*c15G*c2P*p-0X&a-25V&a+1R Name: Karli Sampson : 1975 F40 MedRec: [id number] AcctNum: [id number] Prepared: WedOct 06, 2016 08:39 by Interface Page 14 of 14 pMD [facility] MEDICATION RECONCILIATION You were seen in the Emergency Department on: WedOct 06, 2016 KNOWN ALLERGIES acetaminophen (Unconfirmed): Reaction: "trouble breathing; hives" all opiates, (Unconfirmed): Reaction: Hives, Source: Patient codeine sulfate: Severity: Severe, - "trouble breathing" hydrocodone (Unconfirmed): Reaction: "trouble breathing, hives" hydrocodone bitartrate (Unconfirmed): Reaction: "trouble breathing; hives" meperidine HCl (Unconfirmed): Reaction: "trouble breathing, hives" morphine: Severity: Severe, Source: Patient, - "I coded." promethazine: Reaction: Hives, Severity: Moderate VICOdin: Severity: Severe, Source: Patient, - "trouble breathing." MEDICATIONS GIVEN WHILE IN THE EMERGENCY DEPARTMENT meTOPROLOL tartrate intravenous (metoprolol tartrate) - Dose: 5 milligram(s) : IV Push HOME MEDICATIONS CONTINUE PRESCRIBED aspirin : TABLET : Strength - 81 mg : ORAL Continue as prescribed Patient had been takin tab(s) Oral once a day (in the morning). Notes from the emergency department Reviewed with patient PRESCRIPTIONS (2) Printed (2) atenolol : TABLET : 25 mg : ORAL Quantity: 1, Unit: tab(s), Route: ORAL, Schedule: once a day (in the morning), Dispense: 30 Unit: tab(s) &a-1R&a+25V*p+0X*e1942Z*c202B*c15G*c2P*p-0X&a-25V&a+1R Name: Karli Sampson : 1975 F40 MedRec: [id number] AcctNum: [id number] Prepared: WedOct 06, 2016 08:39 by Interface pMCiro BERGER
--- NOTE | 2016-10-06 10:14 | RAD ---
PORTABLE CHEST: Date: 10-06-16 An AP portable film at 0414 is compared with a 10-25-13 study done at [facility]. FINDINGS: The heart is normal in size and the lungs are clear. No infiltrate or effusion was seen. There is no congestion of the vessels. The mediastinum appears normal and the trachea is midline. IMPRESSION: No acute thoracic findings. POS: HOME
== END 2016-10-06 08:16 | disposition home or self-care (01) ==
LOC: BURERS 03:49
DX: I49.3 Ventricular premature depolarization (principal); F17.210 Nicotine dependence, cigarettes, uncomplicated
CPT/HCPCS: 36415; 71010; 80053; 80306; 81003; 81015; 82550; 82553; 83735; 84443; 84484; 85025; 85379; 93005; 94760; 96374

== ENCOUNTER 2017-01-02 17:58 | Emergency (ER) | payer BC, OTHER ==
--- NOTE | 2017-01-02 19:03 | RAD ---
RIGHT WRIST: 01/02/17 Three views obtained. HISTORY: Wrist pain. Comparison made to right wrist films of 07/11/13. Carpals remain normally aligned. No fracture. No o sseous abnormality seen. IMPRESSION: No acute findings. POS: [facility]
== END 2017-01-02 18:55 | disposition home or self-care (01) ==
LOC: BURERS 17:58
DX: S63.501A Unspecified sprain of right wrist, initial encounter (principal); F17.210 Nicotine dependence, cigarettes, uncomplicated; X58.XXXA Exposure to other specified factors, initial encounter; Y93.68 Activity, volleyball (beach) (court)
CPT/HCPCS: 29125

== ENCOUNTER 2017-02-23 15:47 | Outpatient (CLI) | payer BC, OTHER ==
--- NOTE | 2017-02-24 07:45 | RAD ---
LEFT FOREARM TWO VIEWS 02/23/17 The radius and ulna appear intact. No fractures were seen. No joint effusion was indicated at the el bow. IMPRESSION: No acute finding. POS: HOME
--- NOTE | 2017-02-24 07:45 | RAD ---
LEFT HAND THREE VIEWS: 02/23/17 No acute fracture was seen. The distal radius and ulna as well as the carpal bones all appeared inta ct. Some minor bony spurring is seen in the IP joint and the DIP joint of the index finger. IMPRESSION: No acute finding. POS: HOME
== END 2017-02-23 15:48 | disposition home or self-care (01) ==
LOC: BURRAD 15:47
PROVIDERS: ATTEND Family Medicine
DX: M79.602 Pain in left arm (principal); M79.642 Pain in left hand

== ENCOUNTER 2017-05-28 19:12 | Emergency (ER) | payer BC, OTHER ==
[2017-05-28] MEDS ORDERED: predniSONE 20 MG TAB ONE (19:32)
--- NOTE | 2017-05-28 23:00 | RAD ---
RIGHT FOOT THREE VIEWS: 05/28/17 No fracture or periosteal reaction was seen. All bones appear normal. No cause for the patient's radha n was detected. IMPRESSION: No acute finding. POS: HOME
== END 2017-05-28 19:56 | disposition home or self-care (01) ==
LOC: BURERS 19:12
DX: S90.31XA Contusion of right foot, initial encounter (principal); F17.210 Nicotine dependence, cigarettes, uncomplicated; X58.XXXA Exposure to other specified factors, initial encounter
CPT/HCPCS: J7506

== ENCOUNTER 2018-03-20 21:48 | Emergency (ER) | payer BC ==
[2018-03-20] MEDS ORDERED: Ketorolac Tromethamine 30 MG/ML VIAL ONE (22:13)
[2018-03-20] MEDS ORDERED: Acetaminophen 500 MG TAB ONE (22:13)
[2018-03-20] MEDS ORDERED: predniSONE 20 MG TAB ONE (22:13)
== END 2018-03-20 22:21 | disposition home or self-care (01) ==
LOC: BURERS 21:48
DX: S63.501A Unspecified sprain of right wrist, initial encounter (principal); F17.210 Nicotine dependence, cigarettes, uncomplicated; G89.29 Other chronic pain; X50.1XXA Overexertion from prolonged static or awkward postures, initial encounter
CPT/HCPCS: 99283; J1885; J7506

== ENCOUNTER 2018-07-26 09:19 | Emergency (ER) | payer BC ==
[2018-07-26] MEDS ORDERED: ALPRAZolam 0.5 MG TAB ONE (09:48)
== END 2018-07-26 10:07 | disposition home or self-care (01) ==
LOC: BURERS 09:19
DX: F41.0 Panic disorder [episodic paroxysmal anxiety] (principal); F17.210 Nicotine dependence, cigarettes, uncomplicated
CPT/HCPCS: 93005

== ENCOUNTER 2018-08-12 11:14 | Emergency (ER) | payer BC ==
--- NOTE | 2018-08-12 13:45 | RAD ---
LEFT ELBOW 4 VIEWS: History Injury. Left elbow pain. FINDINGS/IMPRESSION: No acute fracture or dislocation is seen. No joint effusion is identified. POS: [facility]
--- NOTE | 2018-08-12 13:45 | RAD ---
LEFT WRIST 3 VIEWS: HISTORY: Injury with pain. FINDINGS: Carpals appear normally aligned. There is no evidence of fracture identified. IMPRESSION: No acute finding. POS: [facility]
== END 2018-08-12 12:18 | disposition home or self-care (01) ==
LOC: BURERS 11:14
DX: S63.502A Unspecified sprain of left wrist, initial encounter (principal); S50.02XA Contusion of left elbow, initial encounter; F17.210 Nicotine dependence, cigarettes, uncomplicated; W10.9XXA Fall (on) (from) unspecified stairs and steps, initial encounter

== ENCOUNTER 2019-05-07 20:34 | Emergency (ER) | payer BC, OTHER | END 2019-05-07 21:05 | disposition short-term general hospital (02) | LOC: BURERS 20:34 | DX: S80.11XA Contusion of right lower leg, initial encounter (principal); F41.9 Anxiety disorder, unspecified; F17.210 Nicotine dependence, cigarettes, uncomplicated; X58.XXXA Exposure to other specified factors, initial encounter | CPT/HCPCS: 99284 ==

== ENCOUNTER 2019-06-15 09:30 | Emergency (ER) | payer OTHER ==
--- NOTE | 2019-06-15 18:12 | RAD ---
RIGHT FOOT THREE VIEWS: 06/15/19 No fracture or periosteal reaction was seen. All bones appeared intact. IMPRESSION: No acute bony changes. POS: HOME
== END 2019-06-15 10:21 | disposition home or self-care (01) ==
LOC: BURERS 09:30
DX: S93.601A Unspecified sprain of right foot, initial encounter (principal); F41.9 Anxiety disorder, unspecified; F17.210 Nicotine dependence, cigarettes, uncomplicated; W01.0XXA Fall on same level from slipping, tripping and stumbling without subsequent striking against object, initial encounter

== ENCOUNTER 2020-04-03 13:02 | Outpatient (CLI) | payer BC ==
--- NOTE | 2020-04-03 20:30 | RAD ---
RIGHT FOOT THREE VIEWS: 04/03/20 Comparison is made with the 06/15/19 study. No fracture or periosteal reaction was seen. A bipartite sesamoid bone is seen near the fifth metatar deejay head, not a new finding. The joints appear normal. A tiny calcaneal spur was noted. IMPRESSION: No acute bony finding. POS: HOME
== END 2020-04-03 13:03 | disposition home or self-care (01) ==
LOC: BURRAD 13:02
PROVIDERS: ATTEND Family Medicine
DX: S99.921A Unspecified injury of right foot, initial encounter (principal)

== ENCOUNTER 2021-03-04 16:57 | Emergency (ER) | payer BC | END 2021-03-04 18:31 | disposition home or self-care (01) | LOC: BURERS 16:57 | DX: S93.601A Unspecified sprain of right foot, initial encounter (principal); F17.210 Nicotine dependence, cigarettes, uncomplicated; X58.XXXA Exposure to other specified factors, initial encounter ==

== ENCOUNTER 2022-05-02 10:42 | Emergency (ER) | payer BC | END 2022-05-02 11:26 | disposition home or self-care (01) | LOC: BURERS 10:42 | DX: S90.31XA Contusion of right foot, initial encounter (principal); F17.210 Nicotine dependence, cigarettes, uncomplicated; W20.8XXA Other cause of strike by thrown, projected or falling object, initial encounter ==

== ENCOUNTER 2024-05-21 12:27 | Emergency (ER) | payer BC | END 2024-05-21 12:50 | disposition home or self-care (01) | LOC: BURERS 12:27 | DX: S60.012A Contusion of left thumb without damage to nail, initial encounter (principal); F17.210 Nicotine dependence, cigarettes, uncomplicated; W23.1XXA Caught, crushed, jammed, or pinched between stationary objects, initial encounter ==

== ENCOUNTER 2025-08-23 11:51 | Emergency (ER) | payer BC | END 2025-08-23 13:20 | disposition home or self-care (01) | LOC: BURERS 11:51 | DX: M79.675 Pain in left toe(s) (principal); F17.210 Nicotine dependence, cigarettes, uncomplicated | CPT/HCPCS: 99283 ==